=== PATIENT | female | born 1985 | race Asian ===

== ENCOUNTER 2019-06-18 08:26 | Emergency (ER) | payer OTHER ==
[~2019-06-18] VITALS: Ht 172.7 cm; Wt 88.9 kg
[2019-06-18 08:31] VITALS: TEMP 97.7
[2019-06-18 09:30] VITALS: BP 148/81
== END 2019-06-18 09:30 | disposition home or self-care (01) ==
LOC: ED 08:26
DX: N39.0 Urinary tract infection, site not specified (principal)
CPT/HCPCS: 81000; 81025; 87077; 87086; 87088; 87186; 99283

== ENCOUNTER 2019-07-31 00:24 | Outpatient (CLI) | payer OTHER | END 2019-07-31 00:37 | disposition short-term general hospital (02) | LOC: AMB 00:24 | DX: R51 Headache (principal); R55 Syncope and collapse; S09.90XA Unspecified injury of head, initial encounter; W01.198A Fall on same level from slipping, tripping and stumbling with subsequent striking against other object, initial encounter; Y93.9 Activity, unspecified; Y92.017 Garden or yard in single-family (private) house as the place of occurrence of the external cause | CPT/HCPCS: A0425; A0427 ==

== ENCOUNTER 2019-07-31 00:47 | Emergency (ER) | payer OTHER ==
[~2019-07-31] VITALS: Ht 172.7 cm; Wt 88.9 kg
[2019-07-31 00:47] VITALS: TEMP 97.5
[2019-07-31 02:09] LABS: PLATELET COUNT 341 K/uL (152-353)
[2019-07-31 02:46] LABS: POTASSIUM 3.6 mmol/L (3.6-5.2); SODIUM 138 mmol/L (136-145)
[2019-07-31 04:02] VITALS: BP 120/77
== END 2019-07-31 04:11 | disposition home or self-care (01) ==
LOC: ED 00:47
PROVIDERS: Emergency Medicine
DX: S06.0X0A Concussion without loss of consciousness, initial encounter (principal); S09.8XXA Other specified injuries of head, initial encounter; S80.211A Abrasion, right knee, initial encounter; M25.572 Pain in left ankle and joints of left foot; W01.198A Fall on same level from slipping, tripping and stumbling with subsequent striking against other object, initial encounter; Y92.89 Other specified places as the place of occurrence of the external cause
CPT/HCPCS: 80053; 80307; 81025; 84484; 85027; 93005; 99283

== ENCOUNTER 2019-09-27 09:45 | Emergency (ER) | payer OTHER ==
[~2019-09-27] VITALS: Ht 172.7 cm; Wt 90.7 kg
[2019-09-27 12:15] VITALS: BP 112/76; TEMP 98.6
== END 2019-09-27 12:15 | disposition home or self-care (01) ==
LOC: ED 09:45
DX: N39.0 Urinary tract infection, site not specified (principal)
CPT/HCPCS: 81000; 81025; 87502; 87651; 99283

== ENCOUNTER 2019-10-03 08:38 | Emergency (ER) | payer OTHER ==
[~2019-10-03] VITALS: Ht 172.7 cm; Wt 90.7 kg
[2019-10-03 08:48] VITALS: BP 151/105; TEMP 97.5
== END 2019-10-03 10:12 | disposition home or self-care (01) ==
LOC: ED 08:38
DX: R10.84 Generalized abdominal pain (principal); K59.09 Other constipation; L73.8 Other specified follicular disorders
CPT/HCPCS: 81000; 81025; 96372; 99284; J1885

== ENCOUNTER 2019-10-11 08:32 | Emergency (ER) | payer OTHER ==
[~2019-10-11] VITALS: Ht 172.7 cm; Wt 95.3 kg
[2019-10-11 08:38] VITALS: TEMP 97.9
[2019-10-11 10:15] VITALS: BP 130/70
== END 2019-10-11 10:15 | disposition home or self-care (01) ==
LOC: ED 08:32
DX: R10.84 Generalized abdominal pain (principal); R14.1 Gas pain
CPT/HCPCS: 81000; 81025; 84702; 99283

== ENCOUNTER 2021-04-14 17:28 | Emergency (ER) | payer OTHER ==
[2021-04-26 08:15] LABS: PLATELET COUNT 408 K/uL (152-353); POTASSIUM 4.1 mmol/L (3.6-5.2)
== END 2021-04-14 22:45 | disposition home or self-care (01) ==
LOC: ED 17:28
PROVIDERS: Family Medicine
DX: E27.8 Other specified disorders of adrenal gland (principal); K42.9 Umbilical hernia without obstruction or gangrene; N26.1 Atrophy of kidney (terminal)
CPT/HCPCS: 80053; 81000; 81025; 82150; 83690; 85027; 96374; 96375; 99284; Q9963